=== PATIENT | male | born 1955 | race Caucasian/White ===

== ENCOUNTER → 2023-06-24 06:37 | Day surgery (SDC) | payer OTHER, SELFPAY | LOC: GI 06:37 | PROVIDERS: ATTENDING PHYSICIAN Internal Medicine Gastroenterology | DX: Z12.11 Encounter for screening for malignant neoplasm of colon (principal); K57.30 Diverticulosis of large intestine without perforation or abscess without bleeding; K63.5 Polyp of colon; Z86.010 Personal history of colon polyps | CPT/HCPCS: 45385; 45380; 88305 ==

== ENCOUNTER → 2025-03-15 08:38 | Outpatient (REF) | payer OTHER, SELFPAY | LOC: HWRAD 08:38 | PROVIDERS: ATTENDING PHYSICIAN Internal Medicine Geriatric Medicine | DX: G47.33 Obstructive sleep apnea (adult) (pediatric) (principal) | CPT/HCPCS: 70486 ==

== ENCOUNTER → 2025-03-18 08:08 | Outpatient (REF) | payer OTHER, SELFPAY | LOC: RCS 08:08 | PROVIDERS: ATTENDING PHYSICIAN Internal Medicine Geriatric Medicine | DX: I11.9 Hypertensive heart disease without heart failure (principal) | CPT/HCPCS: 93225; 93226 ==

== ENCOUNTER → 2025-03-26 06:53 | Outpatient (REF) | payer OTHER, SELFPAY | LOC: RAD 06:53 | PROVIDERS: ATTENDING PHYSICIAN Internal Medicine Geriatric Medicine | DX: E78.2 Mixed hyperlipidemia (principal); I11.9 Hypertensive heart disease without heart failure; Z00.00 Encounter for general adult medical examination without abnormal findings; G47.33 Obstructive sleep apnea (adult) (pediatric); R73.01 Impaired fasting glucose; L57.0 Actinic keratosis; R10.32 Left lower quadrant pain; Z13.31 Encounter for screening for depression | CPT/HCPCS: 93978 ==